=== PATIENT | male | born 1960 | race Caucasian/White ===

== ENCOUNTER 2019-06-10 05:30 | Inpatient (IN) ==
[2019-06-10] MEDS ORDERED: VANCOMYCIN INJ 1,000 MG in SODIUM CHLORIDE 0.9% 250 ML IV ONE (06:00)
[2019-06-10] MEDS ORDERED: ceFAZolin 1,000 MG in SYRINGE 1 EACH IV ONE (06:00)
[2019-06-10] MEDS ORDERED: BUPIVACAINE 0.5% 50 ML VIAL ONE (06:19)
[2019-06-10] MEDS ORDERED: EPINEPHrine 1 MG/ML VIAL ONE (06:20)
[2019-06-10] MEDS ORDERED: DEXAMETHASONE 4 MG/1 ML VIAL ONE (06:20)
[2019-06-10] MEDS ORDERED: MIDAZOLAM 2 MG/2 ML VIAL ONE (06:20)
[2019-06-10] MEDS ORDERED: LIDOCAINE 1% 5 ML VIAL ONE (06:20)
[2019-06-10] MEDS ORDERED: ceFAZolin 1,000 MG VIAL ONE (06:26)
[2019-06-10] MEDS ORDERED: VANCOMYCIN 1,000 MG VIAL ONE (06:26)
[2019-06-10] MEDS: LACTATED RINGERS 1,000 ML IV SCH ×2 (06:37→09:52)
[2019-06-10] MEDS ORDERED: BUPIVACAINE SPINAL 0.75% 2 ML AMP SPINAL ONE (06:44)
[2019-06-10] MEDS ORDERED: ONDANSETRON 4 MG/2 ML VIAL IV PRN (07:10)
[2019-06-10] MEDS ORDERED: MAGNESIUM HYDROXIDE SUSP 30 ML UDCUP PO PRN (07:10)
[2019-06-10] MEDS ORDERED: PROMETHAZINE 25 MG/1 ML VIAL IM PRN (07:10)
[2019-06-10] MEDS ORDERED: MORPHINE 4 MG/1 ML VIAL IV PRN ×2 (07:10→08:30)
[2019-06-10] MEDS ORDERED: BISACODYL 10 MG SUPP RECTAL PRN (07:10)
[2019-06-10] MEDS ORDERED: LACTULOSE 20 GM/30 ML UDCUP PO PRN (07:10)
[2019-06-10] MEDS ORDERED: TEMAZEPAM 7.5 MG CAPSULE PO PRN (07:10)
[2019-06-10] MEDS ORDERED: diphenhydrAMINE CAP 25 MG CAPSULE PO PRN (07:10)
[2019-06-10] MEDS ORDERED: ALBUTEROL 2.5 MG/3 ML NEB RESP TX PRN (07:13)
[2019-06-10] MEDS ORDERED: MELOXICAM 7.5 MG TABLET PO PRN (07:13)
[2019-06-10] MEDS ORDERED: GLUCAGON 1 MG VIAL IM PRN (07:14)
[2019-06-10] MEDS ORDERED: DEXTROSE 50% 25 GM/50 ML VIAL IV PRN (07:14)
[2019-06-10] MEDS ORDERED: TIOTROPIUM OLODATEROL INH SCH (09:00)
[2019-06-10] MEDS ORDERED: PROPOFOL 200 MG/20 ML VIAL IV ONE (09:00)
[2019-06-10] MEDS ORDERED: PHENYLEPHRINE DRIP 20 MG/250 ML PREMIX IV ONE (09:01)
[2019-06-10] MEDS ORDERED: KETAMINE 500 MG/10 ML VIAL ONE (09:01)
[2019-06-10] MEDS ORDERED: fentaNYL 100 MCG/2 ML VIAL ONE (09:01)
[2019-06-10] MEDS ORDERED: ONDANSETRON 4 MG/2 ML VIAL ONE (09:01)
[2019-06-10] MEDS ORDERED: TRANEXAMIC ACID 1,000 MG/10 ML VIAL ONE (09:01)
[2019-06-10] MEDS ORDERED: PHENYLEPHRINE 1 MG/10 ML SYRINGE IV ONE (09:02)
[2019-06-10] MEDS ORDERED: ACETAMINOPHEN 1,000 MG/100 ML VIAL IV ONE (09:02)
[2019-06-10 09:03] LABS: Apearance,Urine CLEAR (Clear); Bilirubin,Urine Negative (Negative); Blood, Urine Small mg/dL (Negative); Glucose,Urine (UA) Negative (Negative); Ketones,Urine Negative (Negative); Mucus,Urine Occasional /LPF (Occasional); Nitrite,Urine Negative (Negative); Protein,Urine Negative; RBC,Urine 1 /HPF (0-4); Urine Color Yellow (Yellow); Urine Specific Gravity 1.014 (1.001-1.035); Urine Urobilinogen < 2.0 EU/DL (0.2-1.0)
[2019-06-10] MEDS: INSULIN REGULAR 100 UNIT/ML SUBCUT SCH ×4 (12:26→22:55)
[2019-06-10] MEDS: ceFAZolin 2,000 MG in PREMIX 1 EACH IV SCH ×2 (14:32→21:10)
[2019-06-10] MEDS: CLOPIDOGREL 75 MG TABLET PO SCH (17:24)
[2019-06-10] MEDS: LISINOPRIL 20 MG TABLET PO SCH (17:35)
[2019-06-10] MEDS: ASPIRIN EC 81 MG TABLET PO SCH (17:35)
[2019-06-10] MEDS: CITALOPRAM 20 MG TABLET PO SCH (17:35)
[2019-06-10] MEDS: PANTOPRAZOLE 40 MG TABLET PO SCH (17:36)
[2019-06-10] MEDS: OMEGA 3 ACID ETHYL ESTERS 1 GM CAPSULE PO SCH ×2 (17:36→21:10)
[2019-06-10] MEDS: GABAPENTIN 300 MG CAPSULE PO SCH ×2 (17:36→21:09)
[2019-06-10] MEDS: DOCUSATE SODIUM 100 MG CAPSULE PO SCH ×2 (17:36→21:09)
[2019-06-10] MEDS ORDERED: ALBUTEROL INHALER 8 GM INH PRN (18:00)
[2019-06-10] MEDS: FONDAPARINUX 2.5 MG/0.5 ML SYRINGE SUBCUT SCH (19:46)
[2019-06-10] MEDS: ATORVASTATIN 40 MG TABLET PO SCH (21:09)
[2019-06-10] MEDS: MONTELUKAST 10 MG TABLET PO SCH (21:09)
[2019-06-11 05:29] LABS: Basophils # 0.1 10*3/uL (0.0-0.2); Basophils % 0.5 % (0.0-0.8); Eosinophils # 0.1 10*3/uL (0.0-0.87); Eosinophils % 0.7 % (0.00-10.9); Hematocrit 36.6 VOL% (42.0-52.0); Hemoglobin 12.1 GM/DL (14.0-18.0); Immature Granulocytes % 0.5 %; Immature Granulocytes Absolute 0.05 #; Lymphocytes # 3.2 10*3/uL (1.4-4.0); Lymphocytes % 28.6 % (21.2-54.2); Mean Corpuscular HGB Conc 33.1 GM/DL (32-36); Mean Corpuscular Volume 90.4 FL (87-102); Mean Platelet Volume 10.2 FL (9.6-12.0); Monocytes % 10.5 % (1.7-12.7); Neutrophils % 59.2 % (38.7-73.9); Platelet Count 208 T/CUMM (130-400); Red Blood Count 4.05 MC/CUMM (3.8-5.5); Red Cell Distribution Width 13.5 % (9.3-17.3)
[2019-06-11] MEDS: LACTATED RINGERS 1,000 ML IV SCH (05:31)
[2019-06-11 05:59] LABS: Calcium 9.1 MG/DL (8.5-10.1); Osmolality,Calculated 278.4 MOS/KG (273-304)
[2019-06-11] MEDS: INSULIN REGULAR 100 UNIT/ML SUBCUT SCH ×4 (10:30→21:22)
[2019-06-11] MEDS: OMEGA 3 ACID ETHYL ESTERS 1 GM CAPSULE PO SCH ×2 (10:38→21:22)
[2019-06-11] MEDS: LISINOPRIL 20 MG TABLET PO SCH (10:38)
[2019-06-11] MEDS: PANTOPRAZOLE 40 MG TABLET PO SCH (10:38)
[2019-06-11] MEDS: CITALOPRAM 20 MG TABLET PO SCH (10:38)
[2019-06-11] MEDS: ASPIRIN EC 81 MG TABLET PO SCH (10:40)
[2019-06-11] MEDS: DOCUSATE SODIUM 100 MG CAPSULE PO SCH ×2 (10:40→21:22)
[2019-06-11] MEDS: GABAPENTIN 300 MG CAPSULE PO SCH ×2 (10:40→21:21)
[2019-06-11] MEDS: CLOPIDOGREL 75 MG TABLET PO SCH (10:40)
[2019-06-11] MEDS: TIOTROPIUM OLODATEROL INH SCH (10:44)
[2019-06-11] MEDS: FONDAPARINUX 2.5 MG/0.5 ML SYRINGE SUBCUT SCH (18:41)
[2019-06-11] MEDS: ATORVASTATIN 40 MG TABLET PO SCH (21:23)
[2019-06-11] MEDS: MONTELUKAST 10 MG TABLET PO SCH (21:23)
[2019-06-12] MEDS: LACTATED RINGERS 1,000 ML IV SCH (08:38)
[2019-06-12] MEDS: INSULIN REGULAR 100 UNIT/ML SUBCUT SCH ×4 (08:39→21:40)
[2019-06-12] MEDS: PANTOPRAZOLE 40 MG TABLET PO SCH (08:40)
[2019-06-12] MEDS: CITALOPRAM 20 MG TABLET PO SCH (08:40)
[2019-06-12] MEDS: DOCUSATE SODIUM 100 MG CAPSULE PO SCH ×2 (08:40→21:05)
[2019-06-12] MEDS: OMEGA 3 ACID ETHYL ESTERS 1 GM CAPSULE PO SCH ×2 (08:40→21:05)
[2019-06-12] MEDS: ASPIRIN EC 81 MG TABLET PO SCH (08:40)
[2019-06-12] MEDS: GABAPENTIN 300 MG CAPSULE PO SCH ×2 (08:40→21:05)
[2019-06-12] MEDS: CLOPIDOGREL 75 MG TABLET PO SCH (08:40)
[2019-06-12] MEDS: LISINOPRIL 20 MG TABLET PO SCH (08:40)
[2019-06-12] MEDS: TIOTROPIUM OLODATEROL INH SCH (08:41)
[2019-06-12] MEDS: FONDAPARINUX 2.5 MG/0.5 ML SYRINGE SUBCUT SCH (17:08)
[2019-06-12] MEDS: MONTELUKAST 10 MG TABLET PO SCH (21:05)
[2019-06-12] MEDS: ATORVASTATIN 40 MG TABLET PO SCH (21:05)
[2019-06-13] MEDS: LACTATED RINGERS 1,000 ML IV SCH (06:43)
[2019-06-13] MEDS: INSULIN REGULAR 100 UNIT/ML SUBCUT SCH ×3 (08:12→15:36)
[2019-06-13] MEDS: CITALOPRAM 20 MG TABLET PO SCH (08:52)
[2019-06-13] MEDS: CLOPIDOGREL 75 MG TABLET PO SCH (08:52)
[2019-06-13] MEDS: GABAPENTIN 300 MG CAPSULE PO SCH (08:52)
[2019-06-13] MEDS: DOCUSATE SODIUM 100 MG CAPSULE PO SCH (08:53)
[2019-06-13] MEDS: OMEGA 3 ACID ETHYL ESTERS 1 GM CAPSULE PO SCH (08:53)
[2019-06-13] MEDS: PANTOPRAZOLE 40 MG TABLET PO SCH (08:53)
[2019-06-13] MEDS: ASPIRIN EC 81 MG TABLET PO SCH (08:53)
[2019-06-13] MEDS: TIOTROPIUM OLODATEROL INH SCH (08:53)
[2019-06-13] MEDS: LISINOPRIL 20 MG TABLET PO SCH (08:53)
[2019-06-13 15:37] VITALS: BP 107/65
[2019-06-13] MEDS: FONDAPARINUX 2.5 MG/0.5 ML SYRINGE SUBCUT SCH (17:03)
== END 2019-06-13 18:02 | disposition home health service (06) | DRG 470 ==
LOC: N.SDSINP 05:30 → N.3E 08:21
PROVIDERS: ADMIT Orthopaedic Surgery; ATTEND Orthopaedic Surgery

== ENCOUNTER 2019-07-09 09:03 | Inpatient (IN) ==
[2019-07-09 10:11] LABS: Basophils # 0.1 10*3/uL (0.0-0.2); Basophils % 0.9 % (0.0-0.8); Eosinophils # 0.3 10*3/uL (0.0-0.87); Eosinophils % 3.6 % (0.00-10.9); Hematocrit 34.9 VOL% (42.0-52.0); Hemoglobin 11.7 GM/DL (14.0-18.0); Immature Granulocytes % 0.7 %; Immature Granulocytes Absolute 0.06 #; Lymphocytes # 2.4 10*3/uL (1.4-4.0); Lymphocytes % 27.1 % (21.2-54.2); Mean Corpuscular HGB Conc 33.5 GM/DL (32-36); Mean Corpuscular Volume 89.3 FL (87-102); Mean Platelet Volume 8.9 FL (9.6-12.0); Monocytes % 8.6 % (1.7-12.7); Neutrophils % 59.1 % (38.7-73.9); Platelet Count 349 T/CUMM (130-400); Red Blood Count 3.91 MC/CUMM (3.8-5.5); Red Cell Distribution Width 13.8 % (9.3-17.3); White Blood Count 8.7 T/CUMM (4-12)
[2019-07-09 10:28] LABS: Calcium 9.5 MG/DL (8.5-10.1); Osmolality,Calculated 264.5 MOS/KG (273-304)
[2019-07-09] MEDS ORDERED: DIAZEPAM 5 MG TABLET PO ONE (10:28)
[2019-07-09] MEDS ORDERED: FAMOTIDINE 20 MG TABLET PO ONE (10:28)
[2019-07-09] MEDS ORDERED: LACTATED RINGERS 1,000 ML IV SCH ×2 (10:30)
[2019-07-09] MEDS ORDERED: FAMOTIDINE 20 MG TABLET ONE (10:40)
[2019-07-09] MEDS ORDERED: DIAZEPAM 5 MG TABLET ONE (10:41)
[2019-07-09] MEDS ORDERED: VANCOMYCIN 1,000 MG VIAL ONE (11:54)
[2019-07-09] MEDS ORDERED: ePHEDrine 50 MG/ML AMP ONE (12:39)
[2019-07-09] MEDS ORDERED: propofoL 200 MG/20 ML VIAL IV ONE (12:40)
[2019-07-09] MEDS ORDERED: ONDANSETRON 4 MG/2 ML VIAL ONE (12:41)
[2019-07-09] MEDS ORDERED: LIDOCAINE 100 MG/5 ML SYRINGE ONE (12:41)
[2019-07-09] MEDS ORDERED: ALBUTEROL INHALER 8 GM INH ONE (12:41)
[2019-07-09] MEDS ORDERED: SEVOFLURANE 1 UNIT/15 MINUTE INH ONE (12:41)
[2019-07-09] MEDS ORDERED: SODIUM CHLORIDE 0.9% 250 ML IV ONE (12:41)
[2019-07-09] MEDS ORDERED: SUCCINYLCHOLINE 200 MG/10 ML VIAL ONE (12:41)
[2019-07-09] MEDS ORDERED: SODIUM CHLORIDE 0.9% 2,000 ML IV ONE (12:41)
[2019-07-09] MEDS ORDERED: fentaNYL 100 MCG/2 ML VIAL ONE (12:41)
[2019-07-09] MEDS ORDERED: HYDROmorphone 2 MG/1 ML VIAL IV PRN (12:46)
[2019-07-09] MEDS ORDERED: ONDANSETRON 4 MG/2 ML VIAL IV PRN (12:46)
[2019-07-09] MEDS ORDERED: LACTULOSE 20 GM/30 ML UDCUP PO PRN (12:53)
[2019-07-09] MEDS ORDERED: MAGNESIUM HYDROXIDE SUSP 30 ML UDCUP PO PRN (12:53)
[2019-07-09] MEDS ORDERED: MORPHINE 4 MG/1 ML VIAL IV PRN (12:53)
[2019-07-09] MEDS ORDERED: PROMETHAZINE 25 MG/1 ML VIAL IM PRN (12:53)
[2019-07-09] MEDS ORDERED: BISACODYL 10 MG SUPP RECTAL PRN (12:53)
[2019-07-09] MEDS ORDERED: DEXTROSE 50% 25 GM/50 ML VIAL IV PRN (12:57)
[2019-07-09] MEDS ORDERED: GLUCAGON 1 MG VIAL IM PRN (12:57)
[2019-07-09] MEDS ORDERED: MORPHINE 10 MG/1 ML VIAL IV PRN (13:46)
[2019-07-09] MEDS: INSULIN REGULAR 100 UNIT/ML SUBCUT SCH ×2 (17:49→23:04)
[2019-07-09] MEDS: CIPROFLOXACIN 500 MG TABLET PO SCH (20:44)
[2019-07-09] MEDS: VANCOMYCIN INJ 1,500 MG in SODIUM CHLORIDE 0.9% 500 ML IV SCH (20:45)
[2019-07-10] MEDS: FONDAPARINUX 2.5 MG/0.5 ML SYRINGE SUBCUT SCH (06:05)
[2019-07-10] MEDS: INSULIN REGULAR 100 UNIT/ML SUBCUT SCH ×4 (08:57→22:57)
[2019-07-10] MEDS: CIPROFLOXACIN 500 MG TABLET PO SCH ×2 (08:59→20:55)
[2019-07-10] MEDS: VANCOMYCIN INJ 1,500 MG in SODIUM CHLORIDE 0.9% 500 ML IV SCH ×2 (08:59→20:12)
[2019-07-10] MEDS: diphenhydrAMINE CAP 25 MG CAPSULE PO PRN (20:12)
[2019-07-11] MEDS: FONDAPARINUX 2.5 MG/0.5 ML SYRINGE SUBCUT SCH (05:45)
[2019-07-11] MEDS: INSULIN REGULAR 100 UNIT/ML SUBCUT SCH ×4 (07:19→21:26)
[2019-07-11] MEDS: CIPROFLOXACIN 500 MG TABLET PO SCH ×2 (09:03→20:24)
[2019-07-11] MEDS: VANCOMYCIN INJ 1,500 MG in SODIUM CHLORIDE 0.9% 500 ML IV SCH (09:04)
[2019-07-11] MEDS ORDERED: NAFCILLIN 2,000 MG VIAL IM SCH (12:00)
[2019-07-11] MEDS: NAFCILLIN 2,000 MG in SODIUM CHLORIDE 0.9% 100 ML IV SCH ×3 (14:44→20:25)
[2019-07-11] MEDS ORDERED: TUBERCULIN SKIN TEST 0.1 ML SYRINGE INTRADERM ONE (15:45)
[2019-07-11] MEDS: diphenhydrAMINE CAP 25 MG CAPSULE PO PRN (17:11)
[2019-07-12] MEDS: NAFCILLIN 2,000 MG in SODIUM CHLORIDE 0.9% 100 ML IV SCH ×6 (01:07→20:20)
[2019-07-12] MEDS ORDERED: GABAPENTIN 400 MG CAPSULE PO ONE (06:00)
[2019-07-12] MEDS ORDERED: FAMOTIDINE 20 MG TABLET PO ONE (06:00)
[2019-07-12] MEDS ORDERED: ACETAMINOPHEN 500 MG TABLET PO ONE (06:00)
[2019-07-12] MEDS ORDERED: TOBRAMYCIN 1.2 GM VIAL TOP ONE ×2 (06:37→06:47)
[2019-07-12] MEDS ORDERED: VANCOMYCIN 1,000 MG VIAL ONE (06:37)
[2019-07-12] MEDS: FONDAPARINUX 2.5 MG/0.5 ML SYRINGE SUBCUT SCH (06:43)
[2019-07-12] MEDS ORDERED: ALBUTEROL/IPRATROPIUM 3 ML NEB RESP TX ONE (06:57)
[2019-07-12] MEDS ORDERED: ALBUTEROL 2.5 MG/3 ML NEB RESP TX ONE (07:05)
[2019-07-12] MEDS ORDERED: LACTATED RINGERS 1,000 ML IV SCH (07:30)
[2019-07-12] MEDS ORDERED: ONDANSETRON 4 MG/2 ML VIAL IV PRN (08:51)
[2019-07-12] MEDS ORDERED: TEMAZEPAM 7.5 MG CAPSULE PO PRN (08:51)
[2019-07-12] MEDS ORDERED: MORPHINE 4 MG/1 ML VIAL IV PRN ×2 (08:54→08:56)
[2019-07-12 09:35] LABS: Amorphous Crystals,Urine Occasional /HPF (Few); Apearance,Urine CLEAR (Clear); Bacteria,Urine Occasional /HPF (Few); Bilirubin,Urine Negative (Negative); Blood, Urine Negative (Negative); Glucose,Urine (UA) Negative (Negative); Ketones,Urine Negative (Negative); Mucus,Urine Occasional /LPF (Occasional); Nitrite,Urine Negative (Negative); Protein,Urine Negative; Urine Color Yellow (Yellow); Urine Specific Gravity 1.008 (1.001-1.035); Urine Urobilinogen < 2.0 EU/DL (0.2-1.0); WBC,Urine 1 /HPF (0-6)
[2019-07-12] MEDS: INSULIN REGULAR 100 UNIT/ML SUBCUT SCH ×4 (10:22→20:20)
[2019-07-12] MEDS ORDERED: propofoL 200 MG/20 ML VIAL IV ONE (10:27)
[2019-07-12] MEDS ORDERED: LIDOCAINE 100 MG/5 ML SYRINGE ONE (10:27)
[2019-07-12] MEDS ORDERED: MIDAZOLAM 2 MG/2 ML VIAL ONE (10:28)
[2019-07-12] MEDS ORDERED: ROCURONIUM 100 MG/10 ML VIAL IV ONE (10:28)
[2019-07-12] MEDS ORDERED: DESFLURANE 1 UNIT/15 MINUTE INH ONE (10:28)
[2019-07-12] MEDS ORDERED: GLYCOPYRROLATE 0.4 MG/2 ML VIAL ONE (10:28)
[2019-07-12] MEDS ORDERED: fentaNYL 100 MCG/2 ML VIAL ONE (10:28)
[2019-07-12] MEDS ORDERED: PHENYLEPHRINE 1 MG/10 ML SYRINGE IV ONE (10:28)
[2019-07-12] MEDS ORDERED: LACTATED RINGERS 1,000 ML IV ONE (10:28)
[2019-07-12] MEDS ORDERED: NEOSTIGMINE 10 MG/10 ML VIAL ONE (10:28)
[2019-07-12] MEDS: CIPROFLOXACIN 500 MG TABLET PO SCH ×2 (17:10→20:19)
[2019-07-12] MEDS: DOCUSATE SODIUM 100 MG CAPSULE PO SCH ×2 (17:11→20:19)
[2019-07-13] MEDS: NAFCILLIN 2,000 MG in SODIUM CHLORIDE 0.9% 100 ML IV SCH ×6 (01:10→20:55)
[2019-07-13] MEDS: diphenhydrAMINE CAP 25 MG CAPSULE PO PRN (03:29)
[2019-07-13 04:59] LABS: Basophils % 0.5 % (0.0-0.8); Eosinophils # 0.8 10*3/uL (0.0-0.87); Eosinophils % 9.2 % (0.00-10.9); Hematocrit 28.2 VOL% (42.0-52.0); Hemoglobin 9.2 GM/DL (14.0-18.0); Immature Granulocytes % 0.6 %; Immature Granulocytes Absolute 0.05 #; Lymphocytes # 2.1 10*3/uL (1.4-4.0); Lymphocytes % 23.9 % (21.2-54.2); Mean Corpuscular HGB Conc 32.6 GM/DL (32-36); Mean Corpuscular Volume 89.5 FL (87-102); Monocytes % 7.3 % (1.7-12.7); Neutrophils % 58.5 % (38.7-73.9); Platelet Count 299 T/CUMM (130-400); Red Blood Count 3.15 MC/CUMM (3.8-5.5); Red Cell Distribution Width 13.7 % (9.3-17.3); White Blood Count 8.9 T/CUMM (4-12)
[2019-07-13] MEDS: FONDAPARINUX 2.5 MG/0.5 ML SYRINGE SUBCUT SCH (05:49)
[2019-07-13] MEDS: INSULIN REGULAR 100 UNIT/ML SUBCUT SCH ×4 (09:39→21:32)
[2019-07-13] MEDS: CIPROFLOXACIN 500 MG TABLET PO SCH ×2 (09:46→20:55)
[2019-07-13] MEDS: DOCUSATE SODIUM 100 MG CAPSULE PO SCH ×2 (09:46→20:55)
[2019-07-13] MEDS ORDERED: ALBUTEROL/IPRATROPIUM 3 ML NEB RESP TX PRN (16:45)
[2019-07-13] MEDS: FAMOTIDINE 20 MG TABLET PO SCH (20:55)
[2019-07-13] MEDS: CLOTRIMAZOLE/BETAMETHASONE CREAM 15 GM TUBE TOP SCH (20:56)
[2019-07-14] MEDS: diphenhydrAMINE CAP 25 MG CAPSULE PO PRN ×2 (00:52→17:48)
[2019-07-14] MEDS: NAFCILLIN 2,000 MG in SODIUM CHLORIDE 0.9% 100 ML IV SCH ×6 (00:52→21:31)
[2019-07-14] MEDS: FONDAPARINUX 2.5 MG/0.5 ML SYRINGE SUBCUT SCH (05:37)
[2019-07-14] MEDS: INSULIN REGULAR 100 UNIT/ML SUBCUT SCH ×4 (08:42→21:32)
[2019-07-14] MEDS: FAMOTIDINE 20 MG TABLET PO SCH ×2 (08:44→20:44)
[2019-07-14] MEDS: DOCUSATE SODIUM 100 MG CAPSULE PO SCH ×2 (08:44→20:44)
[2019-07-14] MEDS: CIPROFLOXACIN 500 MG TABLET PO SCH ×2 (08:44→20:44)
[2019-07-14] MEDS: CLOTRIMAZOLE/BETAMETHASONE CREAM 15 GM TUBE TOP SCH ×2 (08:45→20:44)
[2019-07-15] MEDS: NAFCILLIN 2,000 MG in SODIUM CHLORIDE 0.9% 100 ML IV SCH ×6 (01:10→21:21)
[2019-07-15] MEDS: FONDAPARINUX 2.5 MG/0.5 ML SYRINGE SUBCUT SCH (06:15)
[2019-07-15] MEDS: INSULIN REGULAR 100 UNIT/ML SUBCUT SCH ×4 (08:44→20:41)
[2019-07-15] MEDS: CIPROFLOXACIN 500 MG TABLET PO SCH ×2 (09:03→21:21)
[2019-07-15] MEDS: FAMOTIDINE 20 MG TABLET PO SCH ×2 (09:03→21:21)
[2019-07-15] MEDS: DOCUSATE SODIUM 100 MG CAPSULE PO SCH ×2 (09:04→21:22)
[2019-07-15] MEDS: CLOTRIMAZOLE/BETAMETHASONE CREAM 15 GM TUBE TOP SCH ×2 (09:05→22:03)
[2019-07-15 09:45] LABS: Basophils # 0.1 10*3/uL (0.0-0.2); Basophils % 0.6 % (0.0-0.8); Eosinophils # 0.8 10*3/uL (0.0-0.87); Eosinophils % 9.7 % (0.00-10.9); Hematocrit 30.6 VOL% (42.0-52.0); Hemoglobin 9.8 GM/DL (14.0-18.0); Immature Granulocytes % 0.7 %; Immature Granulocytes Absolute 0.06 #; Lymphocytes # 2.6 10*3/uL (1.4-4.0); Lymphocytes % 29.6 % (21.2-54.2); Mean Corpuscular Volume 89.7 FL (87-102); Mean Platelet Volume 9.2 FL (9.6-12.0); Monocytes % 7.6 % (1.7-12.7); Neutrophils % 51.8 % (38.7-73.9); Platelet Count 366 T/CUMM (130-400); Red Blood Count 3.41 MC/CUMM (3.8-5.5); Red Cell Distribution Width 13.5 % (9.3-17.3); White Blood Count 8.7 T/CUMM (4-12)
[2019-07-15 10:06] LABS: Calcium 9.9 MG/DL (8.5-10.1); Osmolality,Calculated 280.5 MOS/KG (273-304)
[2019-07-15] MEDS: diphenhydrAMINE CAP 25 MG CAPSULE PO PRN (11:11)
[2019-07-16] MEDS: NAFCILLIN 2,000 MG in SODIUM CHLORIDE 0.9% 100 ML IV SCH ×4 (00:24→12:18)
[2019-07-16] MEDS: diphenhydrAMINE CAP 25 MG CAPSULE PO PRN ×2 (01:57→12:18)
[2019-07-16] MEDS: FONDAPARINUX 2.5 MG/0.5 ML SYRINGE SUBCUT SCH (06:06)
[2019-07-16] MEDS: INSULIN REGULAR 100 UNIT/ML SUBCUT SCH ×2 (08:24→12:01)
[2019-07-16] MEDS: FAMOTIDINE 20 MG TABLET PO SCH (08:36)
[2019-07-16] MEDS: DOCUSATE SODIUM 100 MG CAPSULE PO SCH (08:36)
[2019-07-16] MEDS: CIPROFLOXACIN 500 MG TABLET PO SCH (08:36)
[2019-07-16] MEDS: CLOTRIMAZOLE/BETAMETHASONE CREAM 15 GM TUBE TOP SCH (08:36)
[2019-07-16 11:11] VITALS: BP 140/69
== END 2019-07-16 14:20 | disposition swing bed (61) | DRG 857 ==
LOC: N.OR 09:03 → N.SDSINP 09:03 → N.3E 13:39
PROVIDERS: ADMIT Orthopaedic Surgery; ATTEND Orthopaedic Surgery

== ENCOUNTER 2019-08-26 19:49 | Inpatient (IN) ==
[2019-08-26] MEDS ORDERED: INFLUENZA VIRUS VACCINE 0.5 ML SYRINGE IM ONE (21:22)
[2019-08-26] MEDS ORDERED: DEXTROSE 50% 25 GM/50 ML VIAL IV PRN (23:06)
[2019-08-26] MEDS ORDERED: ONDANSETRON 4 MG/2 ML VIAL IV PRN (23:06)
[2019-08-26] MEDS ORDERED: ACETAMINOPHEN 325 MG TABLET PO PRN (23:06)
[2019-08-26] MEDS ORDERED: GLUCAGON 1 MG VIAL IM PRN (23:06)
[2019-08-27] MEDS: INSULIN REGULAR 100 UNIT/ML SUBCUT SCH ×5 (00:38→20:57)
[2019-08-27] MEDS: SODIUM CHLORIDE 0.9% 1,000 ML IV SCH ×3 (00:41→15:49)
[2019-08-27] MEDS: PIPERACILLIN/TAZOBACTAM 3,375 MG in SODIUM CHLORIDE 0.9% 100 ML IV SCH ×4 (00:43→23:08)
[2019-08-27 01:01] LABS: Basophils # 0.1 10*3/uL (0.0-0.2); Hematocrit 34.2 VOL% (42.0-52.0); Hemoglobin 10.9 GM/DL (14.0-18.0); Immature Granulocytes % 1.9 %; Immature Granulocytes Absolute 0.13 #; Lymphocytes % 28.1 % (21.2-54.2); Mean Corpuscular HGB Conc 31.9 GM/DL (32-36); Mean Corpuscular Volume 86.6 FL (87-102); Mean Platelet Volume 9.3 FL (9.6-12.0); Monocytes % 17.2 % (1.7-12.7); Neutrophils % 50.8 % (38.7-73.9); Platelet Count 290 T/CUMM (130-400); Red Blood Count 3.95 MC/CUMM (3.8-5.5); Red Cell Distribution Width 13.9 % (9.3-17.3)
[2019-08-27 01:18] LABS: Bilirubin,Total 0.6 MG/DL (0.2-1.0); Calcium 9.5 MG/DL (8.5-10.1); Osmolality,Calculated 260.7 MOS/KG (273-304); Total Protein 8.1 G/DL (6.4-8.3)
[2019-08-27] MEDS ORDERED: ZIPRASIDONE 20 MG/1 ML VIAL IM ONE (01:41)
[2019-08-27 02:08] LABS: Band Neutrophils 6 % (0-10); Eosinophils 3 % (0-10); Lymphocytes 24 % (20-55); Platelet Estimate Normal; Segmented Neutrophils 51 % (50-85); Total Cells Counted 100
[2019-08-27] MEDS ORDERED: LORazepam 2 MG/1 ML VIAL IM ONE (04:35)
[2019-08-27] MEDS ORDERED: VANCOMYCIN INJ 1,500 MG in SODIUM CHLORIDE 0.9% 500 ML IV ONE (05:00)
[2019-08-27 05:22] LABS: Basophils # 0.1 10*3/uL (0.0-0.2); Basophils % 1.8 % (0.0-0.8); Hematocrit 32.6 VOL% (42.0-52.0); Hemoglobin 10.3 GM/DL (14.0-18.0); Immature Granulocytes % 1.8 %; Immature Granulocytes Absolute 0.14 #; Lymphocytes # 2.3 10*3/uL (1.4-4.0); Lymphocytes % 29.9 % (21.2-54.2); Mean Corpuscular HGB Conc 31.6 GM/DL (32-36); Mean Corpuscular Volume 86.2 FL (87-102); Mean Platelet Volume 9.2 FL (9.6-12.0); Monocytes % 16.2 % (1.7-12.7); Neutrophils % 50.3 % (38.7-73.9); Platelet Count 275 T/CUMM (130-400); Red Blood Count 3.78 MC/CUMM (3.8-5.5); Red Cell Distribution Width 13.9 % (9.3-17.3); White Blood Count 7.8 T/CUMM (4-12)
[2019-08-27 05:43] LABS: Osmolality,Calculated 264.4 MOS/KG (273-304)
[2019-08-27] MEDS ORDERED: ZIPRASIDONE 20 MG/1 ML VIAL IM PRN (05:43)
[2019-08-27 05:46] LABS: Band Neutrophils 2 % (0-10); Hypochromasia 1+; Lymphocytes 29 % (20-55); Platelet Estimate Adequate; Segmented Neutrophils 57 % (50-85); Total Cells Counted 100
[2019-08-27] MEDS: ENOXAPARIN 40 MG/0.4 ML SYRINGE SUBCUT SCH (08:19)
[2019-08-27] MEDS: VANCOMYCIN INJ 1,250 MG in SODIUM CHLORIDE 0.9% 250 ML IV SCH (20:52)
[2019-08-28 02:42] LABS: Apearance,Urine CLEAR (Clear); Bilirubin,Urine Negative (Negative); Blood, Urine Moderate mg/dL (Negative); Glucose,Urine (UA) Negative (Negative); Ketones,Urine Negative (Negative); Nitrite,Urine Negative (Negative); Protein,Urine Negative; RBC,Urine 10 /HPF (0-4); Squamous Epithelial Cell,Urine Occasional /HPF (0-10); Urine Color Yellow (Yellow); Urine Specific Gravity 1.014 (1.001-1.035); Urine Urobilinogen < 2.0 EU/DL (0.2-1.0); WBC,Urine 2 /HPF (0-6)
[2019-08-28 04:36] LABS: Basophils # 0.1 10*3/uL (0.0-0.2); Basophils % 1.7 % (0.0-0.8); Hematocrit 31.5 VOL% (42.0-52.0); Hemoglobin 10.1 GM/DL (14.0-18.0); Immature Granulocytes % 0.6 %; Immature Granulocytes Absolute 0.04 #; Lymphocytes # 1.7 10*3/uL (1.4-4.0); Lymphocytes % 24.2 % (21.2-54.2); Mean Corpuscular HGB Conc 32.1 GM/DL (32-36); Mean Corpuscular Volume 85.6 FL (87-102); Mean Platelet Volume 9.5 FL (9.6-12.0); Monocytes % 17.6 % (1.7-12.7); Neutrophils % 55.9 % (38.7-73.9); Platelet Count 223 T/CUMM (130-400); Red Blood Count 3.68 MC/CUMM (3.8-5.5); Red Cell Distribution Width 14.1 % (9.3-17.3); White Blood Count 6.9 T/CUMM (4-12)
[2019-08-28] MEDS: SODIUM CHLORIDE 0.9% 1,000 ML IV SCH (04:47)
[2019-08-28 05:05] LABS: Lymphocytes 24 % (20-55); Metamyelocytes 1 %; Platelet Estimate Normal; Segmented Neutrophils 72 % (50-85); Total Cells Counted 100
[2019-08-28 05:06] LABS: Hypochromasia Slight
[2019-08-28 05:13] LABS: Calcium 8.4 MG/DL (8.5-10.1); Osmolality,Calculated 265.4 MOS/KG (273-304)
[2019-08-28] MEDS: VANCOMYCIN INJ 1,250 MG in SODIUM CHLORIDE 0.9% 250 ML IV SCH ×2 (07:18→21:01)
[2019-08-28] MEDS: INSULIN REGULAR 100 UNIT/ML SUBCUT SCH ×4 (07:33→21:16)
[2019-08-28] MEDS: PIPERACILLIN/TAZOBACTAM 3,375 MG in SODIUM CHLORIDE 0.9% 100 ML IV SCH ×3 (08:30→23:27)
[2019-08-28] MEDS: POTASSIUM CHLORIDE 20 MEQ TABLET PO PRN ×2 (08:31→14:58)
[2019-08-28] MEDS: CITALOPRAM 20 MG TABLET PO SCH (08:31)
[2019-08-28] MEDS: OMEGA 3 ACID ETHYL ESTERS 1 GM CAPSULE PO SCH ×2 (08:31→21:07)
[2019-08-28] MEDS: ASPIRIN 325 MG TABLET PO SCH (08:31)
[2019-08-28] MEDS: CLOPIDOGREL 75 MG TABLET PO SCH (08:31)
[2019-08-28] MEDS: MONTELUKAST 10 MG TABLET PO SCH (08:31)
[2019-08-28] MEDS: ENOXAPARIN 40 MG/0.4 ML SYRINGE SUBCUT SCH (08:32)
[2019-08-28] MEDS: LORATADINE 10 MG TABLET PO SCH (08:32)
[2019-08-28] MEDS ORDERED: LISINOPRIL 20 MG TABLET PO SCH (09:00)
[2019-08-28] MEDS ORDERED: LORazepam 2 MG/1 ML VIAL IV ONE (09:23)
[2019-08-28] MEDS: TIOTROPIUM OLODATEROL INH SCH (10:09)
[2019-08-28] MEDS: NYSTATIN POWDER 15 GM BOTTLE TOP SCH ×2 (10:45→21:11)
[2019-08-28] MEDS: HYDROCORTISONE 2.5% CREAM 30 GM TUBE TOP SCH ×2 (10:45→21:09)
[2019-08-28] MEDS: ATORVASTATIN 40 MG TABLET PO SCH (21:07)
[2019-08-29] MEDS: SODIUM CHLORIDE 0.9% 1,000 ML IV SCH (07:09)
[2019-08-29] MEDS: PIPERACILLIN/TAZOBACTAM 3,375 MG in SODIUM CHLORIDE 0.9% 100 ML IV SCH ×2 (07:26→16:17)
[2019-08-29 07:42] LABS: Basophils # 0.1 10*3/uL (0.0-0.2); Basophils % 1.2 % (0.0-0.8); Hematocrit 31.8 VOL% (42.0-52.0); Immature Granulocytes % 0.6 %; Immature Granulocytes Absolute 0.05 #; Lymphocytes # 1.6 10*3/uL (1.4-4.0); Lymphocytes % 19.3 % (21.2-54.2); Mean Corpuscular HGB Conc 31.4 GM/DL (32-36); Mean Corpuscular Volume 87.1 FL (87-102); Mean Platelet Volume 9.5 FL (9.6-12.0); Monocytes % 10.6 % (1.7-12.7); Neutrophils % 68.3 % (38.7-73.9); Platelet Count 235 T/CUMM (130-400); Red Blood Count 3.65 MC/CUMM (3.8-5.5); Red Cell Distribution Width 14.3 % (9.3-17.3); White Blood Count 8.2 T/CUMM (4-12)
[2019-08-29 08:01] LABS: Calcium 8.5 MG/DL (8.5-10.1); Osmolality,Calculated 275.7 MOS/KG (273-304)
[2019-08-29] MEDS: OMEGA 3 ACID ETHYL ESTERS 1 GM CAPSULE PO SCH ×2 (10:20→22:11)
[2019-08-29] MEDS: CLOPIDOGREL 75 MG TABLET PO SCH (10:20)
[2019-08-29] MEDS: MONTELUKAST 10 MG TABLET PO SCH (10:20)
[2019-08-29] MEDS: CITALOPRAM 20 MG TABLET PO SCH (10:20)
[2019-08-29] MEDS: LORATADINE 10 MG TABLET PO SCH (10:20)
[2019-08-29] MEDS: ASPIRIN 325 MG TABLET PO SCH (10:20)
[2019-08-29] MEDS: ENOXAPARIN 40 MG/0.4 ML SYRINGE SUBCUT SCH (10:21)
[2019-08-29] MEDS: INSULIN REGULAR 100 UNIT/ML SUBCUT SCH ×4 (10:22→23:31)
[2019-08-29] MEDS: NYSTATIN POWDER 15 GM BOTTLE TOP SCH ×2 (10:23→22:16)
[2019-08-29] MEDS: TIOTROPIUM OLODATEROL INH SCH (10:23)
[2019-08-29] MEDS: LISINOPRIL 10 MG TABLET PO SCH (10:23)
[2019-08-29] MEDS: HYDROCORTISONE 2.5% CREAM 30 GM TUBE TOP SCH ×2 (10:23→22:16)
[2019-08-29] MEDS: VANCOMYCIN INJ 1,250 MG in SODIUM CHLORIDE 0.9% 250 ML IV SCH ×2 (11:09→22:11)
[2019-08-29] MEDS: ATORVASTATIN 40 MG TABLET PO SCH (22:11)
[2019-08-30] MEDS: PIPERACILLIN/TAZOBACTAM 3,375 MG in SODIUM CHLORIDE 0.9% 100 ML IV SCH ×2 (01:00→08:24)
[2019-08-30] MEDS: SODIUM CHLORIDE 0.9% 1,000 ML IV SCH (01:03)
[2019-08-30 04:46] LABS: Basophils # 0.1 10*3/uL (0.0-0.2); Basophils % 2.2 % (0.0-0.8); Hematocrit 29.5 VOL% (42.0-52.0); Hemoglobin 9.4 GM/DL (14.0-18.0); Immature Granulocytes % 0.6 %; Immature Granulocytes Absolute 0.03 #; Lymphocytes # 2.5 10*3/uL (1.4-4.0); Lymphocytes % 50.5 % (21.2-54.2); Mean Corpuscular HGB Conc 31.9 GM/DL (32-36); Mean Corpuscular Volume 86.8 FL (87-102); Mean Platelet Volume 9.7 FL (9.6-12.0); Neutrophils % 35.7 % (38.7-73.9); Platelet Count 234 T/CUMM (130-400); Red Cell Distribution Width 14.1 % (9.3-17.3)
[2019-08-30 05:10] LABS: Calcium 8.6 MG/DL (8.5-10.1)
[2019-08-30 05:39] LABS: Anisocytosis 1+; Platelet Estimate Normal
[2019-08-30] MEDS: INSULIN REGULAR 100 UNIT/ML SUBCUT SCH ×2 (07:56→12:16)
[2019-08-30] MEDS: NYSTATIN POWDER 15 GM BOTTLE TOP SCH (09:21)
[2019-08-30] MEDS: MONTELUKAST 10 MG TABLET PO SCH (09:22)
[2019-08-30] MEDS: LISINOPRIL 10 MG TABLET PO SCH (09:22)
[2019-08-30] MEDS: ENOXAPARIN 40 MG/0.4 ML SYRINGE SUBCUT SCH (09:22)
[2019-08-30] MEDS: ASPIRIN 325 MG TABLET PO SCH (09:22)
[2019-08-30] MEDS: CITALOPRAM 20 MG TABLET PO SCH (09:22)
[2019-08-30] MEDS: HYDROCORTISONE 2.5% CREAM 30 GM TUBE TOP SCH (09:22)
[2019-08-30] MEDS: LORATADINE 10 MG TABLET PO SCH (09:22)
[2019-08-30] MEDS: OMEGA 3 ACID ETHYL ESTERS 1 GM CAPSULE PO SCH (09:22)
[2019-08-30] MEDS: CLOPIDOGREL 75 MG TABLET PO SCH (09:22)
[2019-08-30] MEDS: TIOTROPIUM OLODATEROL INH SCH (09:23)
[2019-08-30] MEDS: VANCOMYCIN INJ 1,250 MG in SODIUM CHLORIDE 0.9% 250 ML IV SCH (10:14)
[2019-08-30 11:31] VITALS: BP 124/67
== END 2019-08-30 13:17 | disposition swing bed (61) | DRG 314 ==
LOC: N.3E → OBSVTOIN 21:03
PROVIDERS: ADMIT Internal Medicine; ATTEND Hospitalist